=== PATIENT | female | born 1945 ===

== ENCOUNTER 2022-01-12 07:45 | Outpatient (CLI) | payer OTHER | END 2022-01-12 07:46 | disposition home or self-care (01) | LOC: RX STUDY 07:45 | PROVIDERS: ATTEND Internal Medicine Gastroenterology | DX: R13.12 Dysphagia, oropharyngeal phase (principal) ==

== ENCOUNTER 2022-06-13 10:51 | Outpatient (CLI) | payer OTHER | END 2022-06-13 11:00 | disposition home or self-care (01) | LOC: RAD 10:51 | PROVIDERS: ATTEND Orthopaedic Surgery | DX: S72.142D Displaced intertrochanteric fracture of left femur, subsequent encounter for closed fracture with routine healing (principal); S52.502D Unspecified fracture of the lower end of left radius, subsequent encounter for closed fracture with routine healing; M17.12 Unilateral primary osteoarthritis, left knee ==

== ENCOUNTER 2022-11-14 11:10 | Outpatient (CLI) | payer OTHER | END 2022-11-14 11:18 | disposition home or self-care (01) | LOC: RAD 11:10 | DX: E04.1 Nontoxic single thyroid nodule (principal); M25.552 Pain in left hip; R10.2 Pelvic and perineal pain; M79.652 Pain in left thigh ==

== ENCOUNTER 2023-12-20 12:55 | Outpatient (CLI) | payer OTHER | END 2023-12-20 13:13 | disposition home or self-care (01) | LOC: RAD 12:55 | PROVIDERS: ATTEND Pulmonary Function Technologist | DX: J45.901 Unspecified asthma with (acute) exacerbation (principal); J45.909 Unspecified asthma, uncomplicated; F41.9 Anxiety disorder, unspecified; M19.90 Unspecified osteoarthritis, unspecified site ==